=== PATIENT | female | born 1965 | race Caucasian/White ===

== ENCOUNTER 2016-11-12 17:47 | Inpatient (IN) | payer BC ==
[~2016-11-12] VITALS: Ht 160 cm; Wt 92.8 kg
--- NOTE | 2016-11-13 07:28 | CO ---
ADMIT: 11/12/2016 RM/LOC: 504 [facility] MR#: [id number] [id number] [place], [place] [address] JUSTINE ERAZO [address] [place] [address] Consultation SEX: F AGE: 50 : 1965 DATE OF CONSULTATION: 11/12/2016 ATTENDING PHYSICIAN: Martha Pineda CONSULTING PHYSICIAN: Jaspal Alcantar MD CHIEF COMPLAINT: Left hip pain. HISTORY OF PRESENT ILLNESS: This 50-year-old female with a history of rheumatoid arthritis, who has been on multiple rheumatoid agents including steroids for quite some time. She has been on steroids like June. She had about 2 to 3 days now of left hip pain. She has kind of been aggravating her for quite a while for couple days now. No constitutional symptoms, just a lot of left hip pain, so after this persisted for few days now. She went and had an MRI, which showed a large effusion and had a tap this morning by Interventional Radiology that showed an increased white count about of 57,000 with 95% PMNs, negative Gram stain. She had an elevated ESR, CRP, but a normal white count. After discussing with her, this is sort of living on the fence, whether or not this is inflammatory or infectious is not 100% clear, although it does seem to lean a little bit more toward infectious. We discussed the options with her for treatment. REVIEW OF SYMPTOMS: Otherwise negative. PAST MEDICAL HISTORY: Rheumatoid, otherwise noncontributory. OBJECTIVE: GENERAL: She is awake, alert, and oriented, in no acute distress. VITAL SIGNS: Afebrile. Vital signs are stable. MUSCULOSKELETAL: The left hip has minimal pain with a log roll, a little bit of pain with abduction. She sits in fairly neutral stance. No flexion or anything, and she is able to bear weight on it. Sensation intact to light touch. Brisk capillary refill. ADMIT: 11/12/2016 RM/LOC: 504 [facility] MR#: [id number] [id number] [place], [place] [address] JUSTINE ERAZO [address], [place] [address] Consultation SEX: F AGE: 50 : 1965 IMAGING: Again, MRI shows an effusion. LABORATORY DATA: Lab work as in the HPI. ASSESSMENT: A 50-year-old female with left hip effusion, either infectious versus inflammatory. PLAN: She is already on Rocephin, again is nontoxic-appearing. Discussed the options and she wishes to wait until the morning to do surgery. We discussed the risks and benefits of doing that at this point, so we will go ahead and do that. We will put her on for the 1st case 1st thing in the morning to do an open irrigation and debridement of that left hip, be n.p.o. at midnight. Jaspal Alcantar MD/ maggie JOB #: [id number] CC: Martha Pineda, Attending Physician Martha Pineda, Family Physician
--- NOTE | 2016-11-13 15:53 | CO ---
ADMIT: 11/12/2016 RM/LOC: 504 [facility] MR#: [id number] [address] [address] JUSTINE LANGSTON [address] [place] [address] Consultation SEX: F AGE: 50 : 1965 DATE OF CONSULTATION: 11/13/2016 ATTENDING PHYSICIAN: Martha Pineda CONSULTING PHYSICIAN: Chidi Mejia MD REASON FOR CONSULTATION: Rheumatoid arthritis with concern for septic left hip. HISTORY OF PRESENT ILLNESS: Mrs. Langston is a very pleasant 50-year-old female patient of Dr. Irene's with rheumatoid arthritis (positive RF and anti-CCP antibodies). Her disease has been more active lately and Dr. Irene has recently increased her prednisone to 7.5 mg daily and added methotrexate at 15 mg orally once weekly. She has historically been maintained with Plaquenil 400 mg per day. Two to three days ago, she noted an abrupt onset of significant left hip pain and tightness. She was seen on Tuesday by Dr. Irene with concern for infection versus internal derangement. She underwent an MRI, which showed a significant fluid collection and she underwent aspiration by Dr. Feliz. Her Gram-Stain was negative. Her white count was over 57,000 with greater than 90% PMNs and she was admitted to the hospital. Dr. Alcantar took her to the OR this morning for a washout and she is recovering without significant concerns. She denies fever or inciting event for possible sepsis. She notes she never had similar symptoms involving the hip. She had a similar episode with her right shoulder, which responded to intra-articular injection last fall. She notes migratory arthralgias but denies worsening morning stiffness. PAST MEDICAL HISTORY: Pertinent for history of positive rheumatoid arthritis. SOCIAL HISTORY: She does not smoke cigarette or use excessive alcohol. She works in the Radiology Department at the hospital. FAMILY HISTORY: Her father had rheumatoid arthritis and osteoarthritis. REVIEW OF SYSTEMS: As per the HPI, otherwise reviewed and unremarkable. OBJECTIVE: VITAL SIGNS: Blood pressure 117/72, O2 saturation is 98% on room air, pulse 93, respirations 16, temperature is 97.8. GENERAL: She is very pleasant, lying comfortably in bed. HEENT: Head atraumatic and normocephalic. No scleral icterus, conjunctival injection, or mucous membranes ulceration. HEART: Regular. LUNGS: Clear without crackles. EXTREMITIES: No edema. MUSCULOSKELETAL: No acute synovitis noted on examination today. I did not examine her left hip as she recently returned from the OR. ADMIT: 11/12/2016 RM/LOC: 504 [facility] MR#: [id number] [address] [address] [place] [address] Consultation SEX: F AGE: 50 : 1965 IMPRESSION: 1. Rheumatoid arthritis with possible left septic hip. 2. High-risk medication use. PLAN: We will continue with her Plaquenil and prednisone at the current doses. Her methotrexate is not due until Tuesday and we will make a decision before then if she may restart that. We had a nice discussion today about the higher risk of infection with rheumatoid arthritis and her immunosuppressive medications. We also discussed the rheumatoid arthritis is in general more difficult to ascertain whether this is septic or not as they often will not exhibit leukocytosis or fever. We will await her culture and sensitivity, but at this point agree with her current antibiotics. I appreciate both Internal Medicine and Orthopedics help with her case. Please feel free to call with any questions or concerns. Chidi Mejia MD/ maggie JOB #: [id number] CC: Martha Pineda, Attending Physician Martha Pineda, Family Physician
--- NOTE | 2016-11-14 07:29 | OR ---
ADMIT: 11/12/2016 RM/LOC: 504 [facility] MR#: [id number] [address] [address] JUSTINE ERAZO [address] [place] [address] Operative/Delivery Room Report SEX: F AGE: 50 : 1965 SURGERY DATE: 11/13/2016 SURGEON: Jaspal Alcantar MD [employer] DIRECTOR: ROEL Munoz PREOPERATIVE DIAGNOSIS: Left hip effusion with probable infection. POSTOPERATIVE DIAGNOSIS: Left hip effusion with probable infection. PROCEDURE: Left hip irrigation and debridement, open. BLOOD LOSS: 50 mL. COMPLICATIONS: None. IMPLANTS: None. INDICATION: This is a 50-year-old female with rheumatoid arthritis who has been on Plaquenil, methotrexate, and steroids. Steroid has been since June. She was in her normal state of health until about two to three days ago, she started developing worsening left hip pain. It bothers her enough that she went and sought medical attention. She had an MRI that showed a very large effusion. She went and had her hip aspirated by Interventional Radiology. Those labs came back as 57,000 white count with 97% PMNs with a decreased glucose, increased protein, negative Gram stain, and a cloudy looking appearance per the Interventional Radiologist. Her ESR and CRP were elevated. She had no white count and was nontoxic, and had no systemic symptoms. After discussion of the risks and benefits of either watchful waiting or irrigation and debridement, we elected to go ahead with I and D, and she is here for that today. DESCRIPTION OF PROCEDURE: The patient is identified in the preoperative holding area. When informed consent was confirmed, the site was marked, she was brought to the OR, placed supine, and general anesthesia was induced. We put her in the lateral decubitus position with the left leg up. All bony prominences were well padded. We then prepped and draped in the usual sterile fashion. A time-out was performed. Preop antibiotics were confirmed. We made an incision from about 3-4 cm in length, starting just distal to the greater trochanter, angling toward the RAMÍREZ, went down through skin, subcutaneous tissue, down to the IT band. This was cleared, kind of felt for the interval between the TFL and the abductors. We an incision in line with the skin incision. Bluntly dissected the interval, got anterior to the abductors, retracted those posteriorly, identified where the hip was, made a capsulotomy in the anterior aspect of the hip, and inspected the cartilage. There was no significant cartilage loss. Did not encounter any pus, just kind ADMIT: 11/12/2016 RM/LOC: 504 [facility] MR#: [id number] [address] [address] [address] JUSTINE L [facility] [place] [address] Operative/Delivery Room Report SEX: F AGE: 50 : 1965 of serosanguineous cloudy synovial fluid. I aspirated some of this with the syringe and sent that off for culture as well as the capsule that I excised. I then irrigated with 3 L of normal saline with bacitracin using pulse lavage. Then once this was done, that was running nice and clear, again inspected, and there were no other signs of infection or anything within the joint. We then went ahead and closed with #1 Vicryl for the IT band layer, 0-Vicryl for the deep subq, 2-0 for the subq, and then heather for the skin. She was placed in a sterile dressing. I did not place a drain deep. Then once this was done, she was placed back supine, extubated, brought to the Postop Care Unit in good condition. No complications. Postoperatively, she will continue on IV antibiotics with Dr. Irene who is also on board from Rheumatology to manage this and then will continue to monitor it from here. Jaspal Alcantar MD/ arsh JOB #: [id number] CC: Martha Pineda, Attending Physician Martha Pineda, Family Physician
--- NOTE | 2016-11-15 08:25 | HP ---
ADMIT: 11/12/2016 RM/LOC: 504 [facility] MR#: [id number] [address] [address] JUSTINE ERAZO [address] [place] [address] History and Physical SEX: F AGE: 50 : 1965 DATE OF SERVICE: 11/13/2016 REASON FOR HOSPITALIZATION: Hip effusion. HISTORY OF PRESENT ILLNESS: This is a patient who was transferred here for care by Dr. Pineda with reports of a hip effusion and pain with concerns about potential for either inflammation and/or infection. PAST MEDICAL HISTORY: She has an underlying history of rheumatoid arthritis. MEDICATIONS: Her current medications do include, immunosuppressants includin. Deltasone. 2. Methotrexate. 3. Plaquenil. She also uses: 1. Elavil. 2. Folvite. 3. Oyster shell calcium. 4. Protonix. 5. Therapeutic vitamin. 6. Vitamin D. For specifics of dosing, please refer to her admission orders. SOCIAL HISTORY: Noncontributory. No smoking. FAMILY HISTORY: Noncontributory. REVIEW OF SYSTEMS: She reports vaginal yeast infection. Otherwise, no cardiovascular, pulmonary, or gastrointestinal concerns. PHYSICAL EXAMINATION: I am seeing her postoperatively after undergoing an incision and drainage, where Dr. Alcantar describes no evidence of pus, but effusion was found and sent for culture. HEART: She has regular heart. LUNGS: Clear. ADMIT: 11/12/2016 RM/LOC: 504 [facility] MR#: [id number] [address] [address] JUSTINE ERAZO [address] [place] [address] History and Physical SEX: F AGE: 50 : 1965 VITAL SIGNS: Currently normal. GENERAL: She is awakening and comfortable. EXTREMITIES: No peripheral edema. LABORATORY AND X-RAY DATA: Her white count is 5.6. Sedimentation rate 44. C- reactive protein 9.04. IMPRESSION: Hip effusion, inflammatory versus infectious in nature. PLAN: She will be covered with vancomycin and Rocephin. Also treat her vaginal candidiasis with Diflucan. We will monitor her CBC while awaiting culture and sensitivity reports. Macho Glasgow DO/ maggie JOB #: [id number] CC: Martha Pineda, Attending Physician Martha Pineda, Family Physician
[2016-11-17] MEDS ORDERED: PLAQUENIL DPS200 MG PO (06:29)
[2016-11-17] MEDS ORDERED: VITAMIN D2000 UNIT PO (06:29)
[2016-11-17] MEDS ORDERED: PRILOSEC DPS20 MG PO (06:29)
[2016-11-17] MEDS ORDERED: ELAVIL-DPS25 MG PO (06:29)
[2016-11-17] MEDS ORDERED: FOLIC ACID1 MG PO (06:30)
[2016-11-17] MEDS ORDERED: METHOTREXATE2.5 MG PO (06:30)
[2016-11-17] MEDS ORDERED: NORCO 5-325 TA1 EACH PO (06:31)
[2016-11-17] MEDS ORDERED: CALCIUM500 MG PO (06:31)
[2016-11-17] MEDS ORDERED: MULTIVITAMINS1 EAC1 PO (06:31)
[2016-11-17] MEDS ORDERED: DELTASONE DPS20 MG PO (06:32)
[2016-11-17] MEDS ORDERED: DIFLUCAN DPS200 MG PO (06:33)
[2016-11-17] MEDS ORDERED: CULTURELLE1 CAP PO (06:33)
--- NOTE | 2016-11-23 10:00 | ER ---
ADMIT: 11/12/2016 RM/LOC: 504 [facility] MR#: [id number] [address] [address] JUSTINE ERAZO [address] [place] [address] Emergency Room Report SEX: F AGE: 50 : 1965 DATE: 11/12/2016 ADDENDUM: This 50-year-old white female coming over after having a joint aspirate. They had sent her over here to be looked at. Synovial fluid was already drawn. We restarted vancomycin and Rocephin on her and she will be admitted. CONDITION ON ADMISSION: Serious. Nathaniel Garcia MD/ modl JOB #: [id number] CC: Martha Pineda MD, Attending Physician Martha Pineda MD, Family Physician
--- NOTE | 2016-11-25 08:02 | DS ---
ADMIT: 11/12/2016 RM/LOC: 504 [facility] MR#: [id number] [address] [place], [place] [address] JUSTINE ERAZO [address] [place] [address] General Discharge Summary SEX: F AGE: 50 : 1965 ADMISSION DATE: 11/12/2016 DISCHARGE DATE: 11/16/2016 DISCHARGE DIAGNOSES: Rheumatoid flare with severe hip pain, hip discomfort. OPERATIVE PROCEDURE: Left hip irrigation and debridement. HISTORY OF PRESENT ILLNESS: Well documented in her H and P. LABORATORY AND X-RAY DATA: Her laboratory and radiographic assessment is as follows. It is not available at the time of this dictation, but cultures of her hip did not show any evidence of infection. She had, had cultures of her hip, status post outpatient and then repeat culture was performed when she had her washout of her hip performed by Dr. Alcantar. HOSPITAL COURSE: She was admitted to [facility] as a city call patient with severe pain and discomfort in her left hip. She did have as an outpatient, a culture had been performed, aspiration had been performed of her hip. She was presented to the hospital as this pain and discomfort had not resolved. She was seen and evaluated by Dr. Alcantar and as her pain was so great and concerns about an occult infection secondary to her chronic immunosuppression from her rheumatoid arthritis, she underwent further assessment with left hip open I and D. at that time, cultures were performed. She had been started on IV vancomycin and Rocephin. She did have concerns about a vaginal yeast infection and was started on Diflucan. She was followed by Rheumatology as well. Her cultures both from her outpatient aspiration as well as aspiration done during her I and D did not show any evidence of bacteria. She subsequently had improved pain management, was given steroids, prednisone 20 mg p.o. daily and was subsequently discharged home. She will have followup with Dr. Alcantar as well as have followup with Dr. Irene in the outpatient setting. She was discharged in stable condition. DISCHARGE MEDICATIONS: At the time of her dismissal, she will continue her: 1. Culturelle. 2. Continue her prednisone 20 mg with a taper. 3. Diflucan 200 mg for three more days. 4. Elavil. 5. Folic acid. 6. Methotrexate. ADMIT: 11/12/2016 RM/LOC: 504 [facility] MR#: [id number] [address] [address] KACEYJUSTINE FAMRER Tru [address] [place] [address] General Discharge Summary SEX: F AGE: 50 : 1965 As per routine; 1. Oyster shell calcium. 2. Plaquenil 200 mg b.i.d. 3. Prilosec 40 mg daily. 4. Therapeutic vitamins. 5. Vitamin D. At the time of her discharge, her clinical status was stable. For her primary care needs, she will be followed by her primary care physician in [place]. Martha Pineda MD/ maggie JOB #: [id number] CC: Martha Pineda MD, Attending Physician Martha Pineda MD, Family Physician MD Kervin Sunshine MD
== END 2016-11-16 12:00 | disposition home or self-care (01) | DRG 547 ==
LOC: ER 17:47 → 5MS 19:41
PROVIDERS: ADMIT Internal Medicine
PROC: 0S9B0ZX Drainage of Left Hip Joint, Open Approach, Diagnostic (ICD-10-PCS; principal; 2016-11-13)
DX: M06.9 Rheumatoid arthritis, unspecified (principal); B37.3 Candidiasis of vulva and vagina; Z79.52 Long term (current) use of systemic steroids

== ENCOUNTER → 2016-11-12 | Outpatient (CLI) | payer BC ==
[~2016-11-12] MED LIST: CALCIUM500 MG PO; CULTURELLE1 CAP PO; DELTASONE DPS20 MG PO; DIFLUCAN DPS200 MG PO; ELAVIL-DPS25 MG PO; FOLIC ACID1 MG PO; METHOTREXATE2.5 MG PO; MULTIVITAMINS1 EAC1 PO; NORCO 5-325 TA1 EACH PO; PLAQUENIL DPS200 MG PO; PRILOSEC DPS20 MG PO; VITAMIN D2000 UNIT PO
== END | disposition home or self-care (01) ==
LOC: RAD.S 08:47
PROC: 0S9B3ZZ Drainage of Left Hip Joint, Percutaneous Approach (ICD-10-PCS; principal; 2016-11-12)
DX: M25.552 Pain in left hip (principal)